=== PATIENT | female | born 1985 | race Asian ===

== ENCOUNTER 2020-01-04 09:50 | Emergency (ER) | payer SELFPAY ==
[~2020-01-04] VITALS: Ht 152.4 cm; Wt 55.0 kg
[2020-01-04 10:04] VITALS: BP 98/64
[2020-01-04] MEDS ORDERED: METH4TAB2 PO (11:03)
[2020-01-04] MEDS ORDERED: CEPH-264 PO (11:03)
--- NOTE | 2020-01-04 11:03 | PHYS DOC ---
Past Medical History Past Medical History: No Pertinent History Past Surgical History: No Surgical History Smoking Status: Never Smoker Alcohol Use: None General Adult EDM: Chief Complaint: SKIN RASH/ABSCESS HPI: HPI: 34-year-old female who reports she is 8 weeks based on home test and LMP (October 26), presents to the ED with complaints of diffuse pruritic rash that started around her left ear and has spread to her entire body for the past 3 weeks. No relief with Benadryl and calamine lotion. States her rash started shortly after she mowed her lawn, did some gardening and then cleaned her house. Cannot recall ingesting any new medications or food. No new lotions perfumes laundry detergents or unwashed clothing. Cannot recall any specific exposure to chemicals. No h/o prior rash. No oral/mucous membrane involvement. 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 ROS: Denies associated fever, chills, dyspnea, chest pain, hemoptysis, nausea, vomiting, abdominal pain, diarrhea, leg swelling, bleeding or mucous membrane involvement. Hx/Pe was obtained using faculty head services-pt [place] speaking, [id number]. Physical Exam: PE: Constitutional: Well developed, well nourished, no acute distress, non-toxic appearance. [] HENT: Normocephalic, atraumatic, bilateral external ears normal, oropharynx moist, no oral exudates, normal mucous membranes-no ulcers/rash, nose normal. [] Eyes: EOMI, conjunctiva normal, no discharge, no nuchal rigidity or meningismus. [] Neck: Normal range of motion, no tenderness, supple, no stridor. [] Cardiovascular:Heart rate regular rhythm, no murmur [] Lungs & Thorax: Bilateral breath sounds clear to auscultation [] Abdomen: Bowel sounds normal, soft, no tenderness, no masses, no pulsatile masses. [] Skin: Warm, dry, patchy urticaria over left cheek, uppeer chest/back, UEs and LEs approximately 60% body-rash is excoriated, no uniform erythema or warmth or induration Back: No tenderness, no CVA tenderness. [] Extremities: No tenderness, no cyanosis, no clubbing, ROM intact, no edema. [] Neurologic: Alert and oriented X 3, normal motor function, normal sensory function, no focal deficits noted. [] Psychologic: Affect normal, judgement normal, mood normal. [] Current Patient Data: Vital Signs: Vital Signs Date Time Temp Pulse Resp B/P (MAP) Pulse Ox O2 Delivery O2 Flow Rate FiO2 01/04/20 10:04 98.5 77 16 98/64 (75) 99 Room Air 98.5 EKG: EKG: [] Radiology/Procedures: Radiology/Procedures: [] Impression: Concern for allergic rash vs contact dermatitis, unclear source -gardening? chemicals? poison elvin? ingestion? Life threatening rashes considered (meningococcemia, matteo mountain spotted fever, meningitis, DN, SJS, EM, etc), low suspicion for these rashes given hx/pe. Strict ED return precautions given for fever, confusion/lethargy or skin infection. D/w Dr. Nguyen garza who recommends medrol dose pack given extent of the rash. Will prescribe keflex and a medrol dose pack. Referral for pmd and obgyn given. All of patient's questions were answered and she was stable at time of discharge. Course & Med Decision Making: Course & Med Decision Making Pertinent Labs and Imaging studies reviewed. (See chart for details) [] Dragon Disclaimer: Dragon Disclaimer: This electronic medical record was generated, in whole or in part, using a voice recognition dictation system. Departure Departure Impression: Primary Impression: Rash and nonspecific skin eruption Disposition: 01 HOME, SELF-CARE Condition: STABLE Referrals: NO PCP (PCP) CHELY XIONG MD, SARASWATHI MD Patient Instructions: Rash Scripts Cephalexin (KEFLEX) 500 Mg Capsule 2 CAP PO Q12HR for 7 Days, #28 CAP Prov: KRISTINA HERRON DO 01/04/20 Methylprednisolone (MEDROL) 4 Mg Tab.ds.pk 1 PKG PO UD for inflammation, #1 PKG Prov: KRISTINA HERRON DO 01/04/20 Justicifation of Admission Dx: Justifications for Admission: Justification of Admission Dx: N/A KRISTINA HERRON DO Jan 04, 2020 11:03
== END 2020-01-04 11:05 | disposition home or self-care (01) ==
LOC: ER 09:50
DX: O99.711 Diseases of the skin and subcutaneous tissue complicating pregnancy, first trimester (principal); R21 Rash and other nonspecific skin eruption; Z3A.08 8 weeks gestation of pregnancy
CPT/HCPCS: 99283